=== PATIENT | male | born 1960 | race Native Hawaiian/Other Pacific Islander ===

== ENCOUNTER 2019-03-15 15:24 | Emergency (ER) | payer SELFPAY ==
[2019-03-15 15:39] VITALS: BMI 25.5
[2019-03-15 15:41] VITALS: BP 133/81; PULSE 79; RESP 18; TEMP 99.8; O2SAT 97
--- NOTE | 2019-03-15 16:11 | C.PDOC ---
History Of Present Illness 58-year-old male presents to the ED c/o lower back pain x 1 year and right hand pain x 3 months. 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 He has noticed over the past year that he often has to shift to the left side his body to be more comfortable and lessen the pain on his right side. Patient often feels pain radiating from the right buttock to the posterior thigh. Patient also reports right hand pain and swelling intermittently. He denies any known trauma. Patient states he does not like to take medications, but grew concerned because the pain has worsened. He rates the pain 7/10. Patient denies trauma/injury, weakness, numbness/tingling. Time Seen by Provider: 03/15/19 15:42 Chief Complaint (Nursing): Finger,Hand,&Wrist History Per: Patient History/Exam Limitations: no limitations Onset/Duration Of Symptoms: Days, Intermittent Episodes Current Symptoms Are (Timing): Still Present Pain Scale Rating Of: 7 Past Medical History Reviewed: Historical Data, Nursing Documentation, Vital Signs Vital Signs: Last Vital Signs Temp 99.8 F H 03/15/19 15:39 Pulse 79 03/15/19 15:39 Resp 18 03/15/19 15:39 BP 133/81 03/15/19 15:39 Pulse Ox 97 03/15/19 15:39 - Medical History PMH: Anxiety, HTN, Hyperlipidemia Denies: Diabetes, Hepatitis, HIV, Seizures, Sexually Transmitted Disease Surgical History: No Surg Hx - [facility] Procedures INJECT/INFUSE NEC (07/22/14) NEBULIZER THERAPY (10/11/13) PSYCHIA INTERV/EVAL NEC (07/26/14) Family History: States: Unknown Family Hx - Social History Hx Alcohol Use: Yes Hx Substance Use: No - Immunization History Hx Tetanus Toxoid Vaccination: No Hx Influenza Vaccination: No Hx Pneumococcal Vaccination: No Review Of Systems Constitutional: Negative for: Fever, Chills Cardiovascular: Negative for: Chest Pain Respiratory: Negative for: Shortness of Breath Gastrointestinal: Negative for: Nausea, Vomiting Musculoskeletal: Positive for: Back Pain (lower ), Hand Pain (right), Other (right buttock, right posterior thigh ). Negative for: Neck Pain Skin: Negative for: Rash, Bruising Neurological: Negative for: Weakness, Headache, Dizziness Physical Exam - Physical Exam Appears: Non-toxic, No Acute Distress Skin: Normal Color, Warm, Dry Head: Atraumatic, Normacephalic Eye(s): bilateral: Normal Inspection Cardiovascular: Rhythm Regular Respiratory: Normal Breath Sounds, No Wheezing Back: Paraspinal Tenderness (lumbar, bilaterally ), Other (right sacral tenderness to palpation. no erythema or ecchymosis ) Extremity: Normal ROM (fingers of right hand ), Tenderness (to right palm on palpation ), Capillary Refill (less than 2 seconds ), Other (No edema, ecchymosis or erythema. negative phalen's and debo's test) Pulses: Left Radial: Normal, Right Radial: Normal Neurological/Psych: Oriented x3, Normal Speech, Normal Cognition, Normal Motor, Normal Sensation ED Course And Treatment O2 Sat by Pulse Oximetry: 97 (on RA ) Pulse Ox Interpretation: Normal Medical Decision Making Medical Decision Making: While patient was being registered, he was told that this facility is [facility], not [facility], and walked out of the ED. 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 - Scribe Statement The provider has reviewed the documentation as recorded by the Scribe (Marya Haines) All medical record entries made by the Scribe were at my direction and personally dictated by me. I have reviewed the chart and agree that the record accurately reflects my personal performance of the history, physical exam, medical decision making, and the department course for this patient. I have also personally directed, reviewed, and agree with the discharge instructions and disposition.
== END 2019-03-15 16:11 | disposition left against medical advice (07) ==
LOC: C.ER 15:24
DX: M54.5 Low back pain (principal); M79.641 Pain in right hand